=== PATIENT | male | born 1990 | race Two or more races ===

== ENCOUNTER 2022-04-25 15:51 | Emergency (ER) | payer OTHER ==
[~2022-04-25] VITALS: Ht 162.6 cm; Wt 72.6 kg
[2022-04-25] MEDS ORDERED: LORAZEPAM0.5 MG PO (16:13)
[2022-04-25] MEDS ORDERED: SERTRALINE HCL50 MG PO (16:13)
[2022-04-25] MEDS ORDERED: IPRAT-ALBUT 0.5-3 ML IH (19:40)
== END 2022-04-25 19:57 | disposition home or self-care (01) ==
LOC: ER 15:51
DX: J40 Bronchitis, not specified as acute or chronic (principal); Z20.822 Contact with and (suspected) exposure to COVID-19